=== PATIENT | female | born 1990 | race Caucasian/White ===

== ENCOUNTER 2018-01-11 11:32 | Inpatient (IN) | payer SELFPAY ==
[2018-01-11] MEDS ORDERED: Ondansetron 4 MG/2 ML SDV IVPUSH PRN (12:17)
[2018-01-11] MEDS ORDERED: Sodium Chloride 0.9% 10 ML Syringe FLUSH PRN (12:17)
[2018-01-11] MEDS ORDERED: Nalbuphine 20 MG/ML 1 ML Syringe IVPUSH PRN (12:17)
[2018-01-11] MEDS ORDERED: Misoprostol 25 MCG (1/4 of 100 MCG) Tab ONE (12:23)
[2018-01-11] MEDS ORDERED: Oxytocin/Lactated Ringers 10 UNIT/1,000 ML BAG IV SCH ×2 (12:30)
[2018-01-11] MEDS: Misoprostol 25 MCG (1/4 of 100 MCG) Tab VAG PRN ×3 (12:40→21:30)
[2018-01-11] MEDS ORDERED: Penicillin G Potassium 5 MILLUNITS in Sodium Chloride 0.9% 100 ML IV ONE (12:45)
[2018-01-11] MEDS ORDERED: Acetaminophen 325 MG Tab PO ONE (14:01)
--- NOTE | 2018-01-11 17:16 | PCM.LDHP ---
L&D History of Present Illness - General Date of Service: 01/11/18 Admit Problem/Dx: Patient Status Order with Admit Dx/Problem 01/11/18 12:17 Patient Status [ADT] Routine Admission Diagnosis/Problem Admission Diagnosis/Problem Elevated blood pressure affecting in third trimester, antepartum Source of Information: Patient History Limitations: Reports: No Limitations - History of Present Illness Introduction:: Patient is a 27 y/o at 36 6/7 wks presented to clinic today for routine appointment and noted feeling unwell and was found to have a BP of 154/88 and a repeat of 148/90. Was sent here for further monitoring. No other concerns/ complaints. 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 Para: 0 LMP (Approximate): Psychiatric History: Reports: Anxiety, Depression, Eating Disorders - Infectious Disease History Infectious Disease History: Reports: MRSA - Past Surgical History HEENT Surgical History: Reports: Oral Surgery Musculoskeletal Surgical History: Reports: Other (See Below) Other Musculoskeletal Surgeries/Procedures:: bunionectomy Social & Family History - Family History Family Medical History: Noncontributory - Tobacco Use Smoking Status *Q: Former Smoker Packs/Tins Daily: 0.5 Used Tobacco, but Quit: Yes Month/Year Tobacco Last Used: 05/2017 - Caffeine Use Caffeine Use: Reports: None - Alcohol Use Alcohol Use History: No - Recreational Drug Use Recreational Drug Use: Yes Drug Use in Last 12 Months: No Recreational Drug Type: Reports: Amphetamines (Speed), Barbituates, Cocaine, Heroin H&P Review of Systems - Review of Systems: Review Of Systems: See Below General: Reports: Malaise HEENT: Reports: Headaches (intermittent over the last few days ) Pulmonary: Reports: No Symptoms Cardiovascular: Reports: No Symptoms Gastrointestinal: Reports: No Symptoms Genitourinary: Reports: No Symptoms Musculoskeletal: Reports: No Symptoms Psychiatric: Reports: No Symptoms Neurological: Reports: No Symptoms L&D Exam - Exam Exam: See Below - Vital Signs Vital Signs: Last Vital Signs Temp 37.2 C 01/11/18 12:17 Pulse 78 01/11/18 12:17 Resp 18 01/11/18 12:17 BP 152/94 H 01/11/18 12:17 Pulse Ox 98 01/11/18 12:17 Weight: 86.183 kg - OB Specific Contraction Intensity: Irritability Movement: Active Heart Tones: Present Heart Tones per Min: 130 Heart Rate (FHR) Variability: Moderate (6-25 bmp) Presentation: Vertex - Sapp Score Sapp Score Cervix Position: Posterior Sapp Score Consistency: Medium Sapp Score Effacement: 31-50% Sapp Score Dilation: 1-2 cm Sapp Score 's Station: -2 Sapp Score Total: 4 - Exam General: Alert, Oriented, Cooperative Lungs: Clear to Auscultation, Normal Respiratory Effort Cardiovascular: Regular Rate, Regular Rhythm GI/Abdominal Exam: Soft, Non-Tender Genitourinary: Normal external exam Extremities: Normal Inspection Skin: Warm, Dry, Intact - Patient Data Lab Results Last 24 hrs: Laboratory Results - last 24 hr 01/11/18 01/11/18 01/11/18 Range/Units 11:51 12:00 12:15 WBC (3.98-10.04) K/mm3 RBC (3.98-5.22) M/mm3 Hgb (11.2-15.7) gm/L Hct (34.1-44.9) % MCV (79.4-94.8) fl MCH (25.6-32.2) pg MCHC (32.2-35.5) g/dl RDW Std Deviation (36.4-46.3) fL Plt Count (182-369) K/mm3 MPV (9.4-12.3) fl Neut % (Auto) (34.0-71.1) % Lymph % (Auto) (19.3-51.7) % [place] % (Auto) (4.7-12.5) % Eos % (Auto) (0.7-5.8) Baso % (Auto) (0.1-1.2) % Neut # (Auto) (1.56-6.13) K/mm3 Lymph # (Auto) (1.18-3.74) K/mm3 [place] # (Auto) (0.24-0.36) K/mm3 Eos # (Auto) (0.04-0.36) K/mm3 Baso # (Auto) (0.01-0.08) K/mm3 BUN (7-18) mg/dL Creatinine (0.55-1.02) mg/dL Est Cr Clr Drug Dosing mL/min Estimated GFR (MDRD) (>60) mL/min Uric Acid (2.6-6.0) mg/dL AST (15-37) U/L ALT (14-59) U/L Lactate Dehydrogenase (81-234) U/L Urine Color Yellow (Yellow) Urine Appearance Clear (Clear) Urine pH 7.5 (5.0-8.0) Ur Specific [place] 1.015 (1.005-1.030) Urine Protein Negative (Negative) Urine Glucose (UA) Negative (Negative) Urine Ketones Negative (Negative) Urine Occult Blood Negative (Negative) Urine Nitrite Negative (Negative) Urine Bilirubin Negative (Negative) Urine Urobilinogen 0.2 (0.2-1.0) Ur Leukocyte Esterase Negative (Negative) Urine RBC Not seen (0-5) /hpf Urine WBC 0-5 (0-5) /hpf Ur Epithelial Cells 5-10 H (0-5) /hpf Urine Bacteria Few (FEW) /hpf Urine Mucus Not seen (FEW) /hpf Urine Opiates Screen Negative (NEGATIVE) Ur Buprenorphine Scrn Negative (NEGATIVE) Ur Oxycodone Screen Negative (NEGATIVE) Urine Methadone Screen Negative (NEGATIVE) Ur Propoxyphene Screen Negative (NEGATIVE) Ur Barbiturates Screen Negative (NEGATIVE) Ur Tricyclics Screen Negative (NEGATIVE) Ur Phencyclidine Scrn Negative (NEGATIVE) Ur Amphetamine Screen Negative (NEGATIVE) U Methamphetamines Scrn Negative (NEGATIVE) U Benzodiazepines Scrn Negative (NEGATIVE) U Cocaine Metab Screen Negative (NEGATIVE) U Marijuana (THC) Screen Negative (NEGATIVE) RPR (NONREACTIVE) MRSA (PCR) Positive H Blood Type Gel Antibody Screen 01/11/18 01/11/18 01/11/18 Range/Units 12:20 12:20 12:20 WBC 9.45 (3.98-10.04) K/mm3 RBC 4.40 (3.98-5.22) M/mm3 Hgb 13.8 (11.2-15.7) gm/L Hct 40.3 (34.1-44.9) % MCV 91.6 (79.4-94.8) fl MCH 31.4 (25.6-32.2) pg MCHC 34.2 (32.2-35.5) g/dl RDW Std Deviation 43.8 (36.4-46.3) fL Plt Count 148 L (182-369) K/mm3 MPV 12.9 H (9.4-12.3) fl Neut % (Auto) 77.0 H (34.0-71.1) % Lymph % (Auto) 16.0 L (19.3-51.7) % [place] % (Auto) 6.3 (4.7-12.5) % Eos % (Auto) 0.4 L (0.7-5.8) Baso % (Auto) 0.1 (0.1-1.2) % Neut # (Auto) 7.27 H (1.56-6.13) K/mm3 Lymph # (Auto) 1.51 (1.18-3.74) K/mm3 [place] # (Auto) 0.60 H (0.24-0.36) K/mm3 Eos # (Auto) 0.04 (0.04-0.36) K/mm3 Baso # (Auto) 0.01 (0.01-0.08) K/mm3 BUN 6 L (7-18) mg/dL Creatinine 0.9 (0.55-1.02) mg/dL Est Cr Clr Drug Dosing 98.99 mL/min Estimated GFR (MDRD) > 60 (>60) mL/min Uric Acid 6.1 H (2.6-6.0) mg/dL AST 19 (15-37) U/L ALT 18 (14-59) U/L Lactate Dehydrogenase 185 (81-234) U/L Urine Color (Yellow) Urine Appearance (Clear) Urine pH (5.0-8.0) Ur Specific [place] (1.005-1.030) Urine Protein (Negative) Urine Glucose (UA) (Negative) Urine Ketones (Negative) Urine Occult Blood (Negative) Urine Nitrite (Negative) Urine Bilirubin (Negative) Urine Urobilinogen (0.2-1.0) Ur Leukocyte Esterase (Negative) Urine RBC (0-5) /hpf Urine WBC (0-5) /hpf Ur Epithelial Cells (0-5) /hpf Urine Bacteria (FEW) /hpf Urine Mucus (FEW) /hpf Urine Opiates Screen (NEGATIVE) Ur Buprenorphine Scrn (NEGATIVE) Ur Oxycodone Screen (NEGATIVE) Urine Methadone Screen (NEGATIVE) Ur Propoxyphene Screen (NEGATIVE) Ur Barbiturates Screen (NEGATIVE) Ur Tricyclics Screen (NEGATIVE) Ur Phencyclidine Scrn (NEGATIVE) Ur Amphetamine Screen (NEGATIVE) U Methamphetamines Scrn (NEGATIVE) U Benzodiazepines Scrn (NEGATIVE) U Cocaine Metab Screen (NEGATIVE) U Marijuana (THC) Screen (NEGATIVE) RPR (NONREACTIVE) MRSA (PCR) Blood Type O POSITIVE Gel Antibody Screen Negative 01/11/18 Range/Units 12:20 WBC (3.98-10.04) K/mm3 RBC (3.98-5.22) M/mm3 Hgb (11.2-15.7) gm/L Hct (34.1-44.9) % MCV (79.4-94.8) fl MCH (25.6-32.2) pg MCHC (32.2-35.5) g/dl RDW Std Deviation (36.4-46.3) fL Plt Count (182-369) K/mm3 MPV (9.4-12.3) fl Neut % (Auto) (34.0-71.1) % Lymph % (Auto) (19.3-51.7) % [place] % (Auto) (4.7-12.5) % Eos % (Auto) (0.7-5.8) Baso % (Auto) (0.1-1.2) % Neut # (Auto) (1.56-6.13) K/mm3 Lymph # (Auto) (1.18-3.74) K/mm3 [place] # (Auto) (0.24-0.36) K/mm3 Eos # (Auto) (0.04-0.36) K/mm3 Baso # (Auto) (0.01-0.08) K/mm3 BUN (7-18) mg/dL Creatinine (0.55-1.02) mg/dL Est Cr Clr Drug Dosing mL/min Estimated GFR (MDRD) (>60) mL/min Uric Acid (2.6-6.0) mg/dL AST (15-37) U/L ALT (14-59) U/L Lactate Dehydrogenase (81-234) U/L Urine Color (Yellow) Urine Appearance (Clear) Urine pH (5.0-8.0) Ur Specific [place] (1.005-1.030) Urine Protein (Negative) Urine Glucose (UA) (Negative) Urine Ketones (Negative) Urine Occult Blood (Negative) Urine Nitrite (Negative) Urine Bilirubin (Negative) Urine Urobilinogen (0.2-1.0) Ur Leukocyte Esterase (Negative) Urine RBC (0-5) /hpf Urine WBC (0-5) /hpf Ur Epithelial Cells (0-5) /hpf Urine Bacteria (FEW) /hpf Urine Mucus (FEW) /hpf Urine Opiates Screen (NEGATIVE) Ur Buprenorphine Scrn (NEGATIVE) Ur Oxycodone Screen (NEGATIVE) Urine Methadone Screen (NEGATIVE) Ur Propoxyphene Screen (NEGATIVE) Ur Barbiturates Screen (NEGATIVE) Ur Tricyclics Screen (NEGATIVE) Ur Phencyclidine Scrn (NEGATIVE) Ur Amphetamine Screen (NEGATIVE) U Methamphetamines Scrn (NEGATIVE) U Benzodiazepines Scrn (NEGATIVE) U Cocaine Metab Screen (NEGATIVE) U Marijuana (THC) Screen (NEGATIVE) RPR Non-reactive (NONREACTIVE) MRSA (PCR) Blood Type Gel Antibody Screen Result Diagrams: 01/11/18 12:20 01/11/18 12:20 - Problem List (1) 37 weeks gestation of SNOMED Code(s): 92908482 ICD Code: Z3A.37 - 37 WEEKS GESTATION OF Status: Acute Current Visit: Yes (2) Preeclampsia SNOMED Code(s): 225506218 ICD Code: O14.90 - UNSPECIFIED PRE-ECLAMPSIA, UNSPECIFIED TRIMESTER Status : Acute Current Visit: Yes Qualifiers: Trimester: third trimester Qualified Code(s): O14.93 - Unspecified pre- eclampsia, third trimester (3) GBS (group B Streptococcus carrier), +RV culture, currently SNOMED Code(s): 5308869047534, 794983857, 1137127850079 ICD Code: O99.820 - STREPTOCOCCUS B CARRIER STATE COMPLICATING Status: Acute Current Visit: Yes (4) History of substance abuse SNOMED Code(s): 137161937 ICD Code: Z87.898 - PERSONAL HISTORY OF OTHER SPECIFIED CONDITIONS Status: Acute Current Visit: Yes Problem List Initiated/Reviewed/Updated: Yes Orders Last 24hrs: Active Orders 24 hr Category Date Time Status Patient Status [ADT] Routine ADT 01/11/18 12:17 Active Communication Order [RC] ASDIRECTED Care 01/11/18 12:17 Active Communication Order [RC] ASDIRECTED Care 01/11/18 12:17 Active Communication Order [RC] ASDIRECTED Care 01/11/18 12:17 Active Communication Order [RC] ASDIRECTED Care 01/11/18 12:17 Active Monitoring [RC] INTERMITTENT Care 01/11/18 12:17 Active Non Stress Test [RC] PER UNIT ROUTINE Care 01/11/18 12:17 Active Notify Provider [RC] ASDIRECTED Care 01/11/18 12:17 Active Notify Provider [RC] PRN Care 01/11/18 12:17 Active Peripheral IV Care [RC] . DIRECTED Care 01/11/18 12:18 Active Vaginal Exam [RC] ASDIRECTED Care 01/11/18 12:17 Active Vital Signs [RC] PER UNIT ROUTINE Care 01/11/18 12:17 Active Regular Diet [DIET] Diet 01/11/18 Dinner Active Regular Diet [DIET] Diet 01/11/18 Lunch Active DRUG SCREEN, URINE [URCHEM] Stat Lab 01/11/18 12:00 Ordered MRSA CULTURE [MREF] Routine Lab 01/11/18 12:15 Received PATIENT RETYPE [BBK] Routine Lab 01/11/18 12:20 Results TYPE AND SCREEN [BBK] Routine Lab 01/11/18 12:20 Results Lactated Ringers [Ringers, Lactated] 1,000 ml Med 01/11/18 12:30 Active IV ASDIRECTED Nalbuphine [Nubain] Med 01/11/18 12:17 Active 10 mg IVPUSH Q2H PRN Ondansetron [Zofran] Med 01/11/18 12:17 Active 4 mg IVPUSH Q4H PRN Oxytocin/Lactated Ringers [Pitocin in LR 10 Units/1,000 Med 01/11/18 12:30 Active ML] 10 unit in 1,000 ml IV .CONTINUOUS Oxytocin/Lactated Ringers [Pitocin in LR 10 Units/1,000 Med 01/11/18 12:30 Active ML] 10 unit in 1,000 ml IV TITRATE Penicillin G Potassium [Pfizerpen] 2.5 millunits Med 01/11/18 17:00 Active Sodium Chloride 0.9% [Normal Saline] 100 ml IV Q4H Sodium Chloride 0.9% [Saline Flush] Med 01/11/18 12:17 Active 10 ml FLUSH ASDIRECTED PRN miSOPROStol [Cytotec] Med 01/11/18 12:17 Active 25 mcg VAG Q4H PRN Electronic Heart Tones Internal [WOMSER] Per Unit Ot 01/11/18 12:17 Ordered Routine Medication Administration Instruction [OM.PC] Ot 01/11/18 12:30 Ordered ASDIRECTED PIH Panel [OM.PC] Stat Ot 01/11/18 11:51 Ordered Peripheral IV Insertion Adult [OM.PC] Routine Ot 01/11/18 12:17 Ordered Medication Orders Lactated Ringer's (Ringers, Lactated) 1,000 mls @ 40 mls/hr IV ASDIRECTED BRISA Oxytocin/Lactated Ringer's (Pitocin In Lr 10 Units/1,000 Ml) 10 unit in 1,000 mls @ 12 mls/hr IV TITRATE BRISA; Protocol Penicillin G Potassium 2.5 (millunits/ Sodium Chloride) 100 mls @ 100 mls/hr IV Q4H BIRSA Oxytocin/Lactated Ringer's (Pitocin In Lr 10 Units/1,000 Ml) 10 unit in 1,000 mls @ 500 mls/hr IV .CONTINUOUS BRISA Misoprostol (Cytotec) 25 mcg VAG Q4H PRN PRN Reason: cervical ripening Last Admin: 01/11/18 12:40 Dose: 25 mcg Nalbuphine HCl (Nubain) 10 mg IVPUSH Q2H PRN PRN Reason: pain Ondansetron HCl (Zofran) 4 mg IVPUSH Q4H PRN PRN Reason: Nausea/Vomiting Sodium Chloride (Saline Flush) 10 ml FLUSH ASDIRECTED PRN PRN Reason: Keep Vein Open Assessment/Plan Comment:: 27 y/o at 36 6/7 wks who has continued findings of mild range BP's and one isolated severe range. Will keep for IOL. * Labs done and WNL * Will defer magnesium for now as only one isolated severe range BP. Will monitor closely * Cyotec and rodriguez bulb for IOL. * GBS prophylaxis to be started later in induction process * pain management per patient preference * UDS on admission * Anticipate
--- NOTE | 2018-01-11 22:16 | PCM.PNLD ---
Labor Progress Note - VS & Meds Vital Signs: Last Vital Signs Temp 37.2 C 01/11/18 12:17 Pulse 78 01/11/18 12:17 Resp 18 01/11/18 12:17 BP 152/94 H 01/11/18 12:17 Pulse Ox 98 01/11/18 12:17 Active Medications: Current Medications Lactated Ringer's (Ringers, Lactated) 1,000 mls @ 40 mls/hr IV ASDIRECTED BRISA Oxytocin/Lactated Ringer's (Pitocin In Lr 10 Units/1,000 Ml) 10 unit in 1,000 mls @ 12 mls/hr IV TITRATE BRISA; Protocol Penicillin G Potassium 2.5 (millunits/ Sodium Chloride) 100 mls @ 100 mls/hr IV Q4H BRISA Oxytocin/Lactated Ringer's (Pitocin In Lr 10 Units/1,000 Ml) 10 unit in 1,000 mls @ 500 mls/hr IV .CONTINUOUS BRISA Nalbuphine HCl (Nubain) 10 mg IVPUSH Q2H PRN PRN Reason: pain Ondansetron HCl (Zofran) 4 mg IVPUSH Q4H PRN PRN Reason: Nausea/Vomiting Sodium Chloride (Saline Flush) 10 ml FLUSH ASDIRECTED PRN PRN Reason: Keep Vein Open Discontinued Medications Acetaminophen (Tylenol) 650 mg PO NOW ONE Stop: 01/11/18 14:02 Last Admin: 01/11/18 14:17 Dose: 650 mg Penicillin G Potassium 5 (millunits/ Sodium Chloride) 100 mls @ 100 mls/hr IV ONETIME ONE Stop: 01/11/18 13:44 Misoprostol (Cytotec) 25 mcg VAG Q4H PRN PRN Reason: cervical ripening Last Admin: 01/11/18 21:30 Dose: 25 mcg Misoprostol (Cytotec) Confirm Administered Dose 25 mcg .ROUTE .STK-MED ONE Stop: 01/11/18 12:24 Last Admin: 01/11/18 12:34 Dose: Not Given - Uterine Contractions Uterine Monitoring Mode: External [place] Contraction Intensity: Irritability - Monitoring Monitor Mode: External Ultrasound Heart Rate (FHR) Baseline: 125 Heart Rate (FHR) Variability: Moderate (6-25 bmp) Accelerations: Present, 15x15 Decelerations: None Strip Review: Category I - Labor Progress (Free Text) Labor Progress: 3rd cytotec placed around rodriguez. Almost out of cervix. Will plan on switching to pitocin in 4 hours
[2018-01-12] MEDS: Lactated Ringers 1,000 ML IV SCH ×2 (01:43→08:17)
[2018-01-12] MEDS: Penicillin G Potassium 2.5 MILLUNITS in Sodium Chloride 0.9% 100 ML IV SCH ×2 (02:26→06:43)
--- NOTE | 2018-01-12 06:56 | PCM.PNLD ---
Labor Progress Note - VS & Meds Vital Signs: Last Vital Signs Temp 37.2 C 01/11/18 12:17 Pulse 78 01/11/18 12:17 Resp 18 01/11/18 12:17 BP 152/94 H 01/11/18 12:17 Pulse Ox 98 01/11/18 12:17 Active Medications: Current Medications Lactated Ringer's (Ringers, Lactated) 1,000 mls @ 40 mls/hr IV ASDIRECTED BRISA Last Admin: 01/12/18 01:43 Dose: 40 mls/hr Oxytocin/Lactated Ringer's (Pitocin In Lr 10 Units/1,000 Ml) 10 unit in 1,000 mls @ 12 mls/hr IV TITRATE BRISA; Protocol Last Titration: 01/12/18 06:51 Dose: 10 munits/min, 60 mls/hr Penicillin G Potassium 2.5 (millunits/ Sodium Chloride) 100 mls @ 100 mls/hr IV Q4H BRISA Last Admin: 01/12/18 06:43 Dose: 100 mls/hr Oxytocin/Lactated Ringer's (Pitocin In Lr 10 Units/1,000 Ml) 10 unit in 1,000 mls @ 500 mls/hr IV .CONTINUOUS BRISA Nalbuphine HCl (Nubain) 10 mg IVPUSH Q2H PRN PRN Reason: pain Ondansetron HCl (Zofran) 4 mg IVPUSH Q4H PRN PRN Reason: Nausea/Vomiting Sodium Chloride (Saline Flush) 10 ml FLUSH ASDIRECTED PRN PRN Reason: Keep Vein Open Discontinued Medications Acetaminophen (Tylenol) 650 mg PO NOW ONE Stop: 01/11/18 14:02 Last Admin: 01/11/18 14:17 Dose: 650 mg Penicillin G Potassium 5 (millunits/ Sodium Chloride) 100 mls @ 100 mls/hr IV ONETIME ONE Stop: 01/11/18 13:44 Last Admin: 01/12/18 01:45 Dose: 100 mls/hr Misoprostol (Cytotec) 25 mcg VAG Q4H PRN PRN Reason: cervical ripening Last Admin: 01/11/18 21:30 Dose: 25 mcg Misoprostol (Cytotec) Confirm Administered Dose 25 mcg .ROUTE .STK-MED ONE Stop: 01/11/18 12:24 Last Admin: 01/11/18 12:34 Dose: Not Given - Uterine Contractions Uterine Monitoring Mode: External [place] Contraction Intensity: Mild to Moderate - Monitoring Monitor Mode: External Ultrasound Heart Rate (FHR) Baseline: 130 Heart Rate (FHR) Variability: Moderate (6-25 bmp) Accelerations: Present, 15x15 Decelerations: None Strip Review: Category I - Vaginal Exam Dilation (cm): 3 Effacement (Percent): 80 Station: -2 Cervical Position: Posterior - Labor Progress (Free Text) Labor Progress: Doing well. On 10 of pitocin. Reports contractions as mild. AROM performed with release of clear fluid. BP's normal to mild range overnight.
--- NOTE | 2018-01-12 07:10 | PCM.PREANE ---
Preanesthetic Assessment - Procedure Proposed Procedure: [facility] - Anesthesia/Transfusion/Family Hx Anesthesia History: Prior Anesthesia Without Reaction Family History of Anesthesia Reaction: No Transfusion History: No Prior Transfusion(s) - Review of Systems General: No Symptoms Pulmonary: No Symptoms Cardiovascular: No Symptoms Gastrointestinal: No Symptoms Neurological: No Symptoms Other: Reports: Depression, Anxiety - Physical Assessment NPO Status Date: 01/12/18 NPO Status Time: 04:00 Pulse: 55 O2 Sat by Pulse Oximetry: 98 Respiratory Rate: 18 Blood Pressure: 136/83 Temperature: 36.8 C Vital Signs: Last Vital Signs Temp 37.2 C 01/11/18 12:17 Pulse 78 01/11/18 12:17 Resp 18 01/11/18 12:17 BP 152/94 H 01/11/18 12:17 Pulse Ox 98 01/11/18 12:17 Height: 1.75 m Weight: 86.183 kg ASA Class: 2 Mental Status: Alert & Oriented x3 Airway Class: Mallampati = 1 Dentition: Reports: Normal Dentition Thyro-Mental Finger Breadths: 3 Mouth Opening Finger Breadths: 3 ROM/Head Extension: Full Lungs: Clear to Auscultation, Normal Respiratory Effort Cardiovascular: Regular Rate, Regular Rhythm - Lab Values: Laboratory Last Values WBC 9.45 K/mm3 (3.98-10.04) 01/11/18 12:20 RBC 4.40 M/mm3 (3.98-5.22) 01/11/18 12:20 Hgb 13.8 gm/L (11.2-15.7) 01/11/18 12:20 Hct 40.3 % (34.1-44.9) 01/11/18 12:20 MCV 91.6 fl (79.4-94.8) 01/11/18 12:20 MCH 31.4 pg (25.6-32.2) 01/11/18 12:20 MCHC 34.2 g/dl (32.2-35.5) 01/11/18 12:20 RDW Std Deviation 43.8 fL (36.4-46.3) 01/11/18 12:20 Plt Count 148 K/mm3 (182-369) L 01/11/18 12:20 MPV 12.9 fl (9.4-12.3) H 01/11/18 12:20 Neut % (Auto) 77.0 % (34.0-71.1) H 01/11/18 12:20 Lymph % (Auto) 16.0 % (19.3-51.7) L 01/11/18 12:20 [place] % (Auto) 6.3 % (4.7-12.5) 01/11/18 12:20 Eos % (Auto) 0.4 (0.7-5.8) L 01/11/18 12:20 Baso % (Auto) 0.1 % (0.1-1.2) 01/11/18 12:20 Neut # (Auto) 7.27 K/mm3 (1.56-6.13) H 01/11/18 12:20 Lymph # (Auto) 1.51 K/mm3 (1.18-3.74) 01/11/18 12:20 [place] # (Auto) 0.60 K/mm3 (0.24-0.36) H 01/11/18 12:20 Eos # (Auto) 0.04 K/mm3 (0.04-0.36) 01/11/18 12:20 Baso # (Auto) 0.01 K/mm3 (0.01-0.08) 01/11/18 12:20 BUN 6 mg/dL (7-18) L 01/11/18 12:20 Creatinine 0.9 mg/dL (0.55-1.02) 01/11/18 12:20 Est Cr Clr Drug Dosing 98.99 mL/min 01/11/18 12:20 Estimated GFR (MDRD) > 60 mL/min (>60) 01/11/18 12:20 Uric Acid 6.1 mg/dL (2.6-6.0) H 01/11/18 12:20 AST 19 U/L (15-37) 01/11/18 12:20 ALT 18 U/L (14-59) 01/11/18 12:20 Lactate Dehydrogenase 185 U/L (81-234) 01/11/18 12:20 Urine Color Yellow (Yellow) 01/11/18 11:51 Urine Appearance Clear (Clear) 01/11/18 11:51 Urine pH 7.5 (5.0-8.0) 01/11/18 11:51 Ur Specific [place] 1.015 (1.005-1.030) 01/11/18 11:51 Urine Protein Negative (Negative) 01/11/18 11:51 Urine Glucose (UA) Negative (Negative) 01/11/18 11:51 Urine Ketones Negative (Negative) 01/11/18 11:51 Urine Occult Blood Negative (Negative) 01/11/18 11:51 Urine Nitrite Negative (Negative) 01/11/18 11:51 Urine Bilirubin Negative (Negative) 01/11/18 11:51 Urine Urobilinogen 0.2 (0.2-1.0) 01/11/18 11:51 Ur Leukocyte Esterase Negative (Negative) 01/11/18 11:51 Urine RBC Not seen /hpf (0-5) 01/11/18 11:51 Urine WBC 0-5 /hpf (0-5) 01/11/18 11:51 Ur Epithelial Cells 5-10 /hpf (0-5) H 01/11/18 11:51 Urine Bacteria Few /hpf (FEW) 01/11/18 11:51 Urine Mucus Not seen /hpf (FEW) 01/11/18 11:51 Urine Opiates Screen Negative (NEGATIVE) 01/11/18 12:00 Ur Buprenorphine Scrn Negative (NEGATIVE) 01/11/18 12:00 Ur Oxycodone Screen Negative (NEGATIVE) 01/11/18 12:00 Urine Methadone Screen Negative (NEGATIVE) 01/11/18 12:00 Ur Propoxyphene Screen Negative (NEGATIVE) 01/11/18 12:00 Ur Barbiturates Screen Negative (NEGATIVE) 01/11/18 12:00 Ur Tricyclics Screen Negative (NEGATIVE) 01/11/18 12:00 Ur Phencyclidine Scrn Negative (NEGATIVE) 01/11/18 12:00 Ur Amphetamine Screen Negative (NEGATIVE) 01/11/18 12:00 U Methamphetamines Scrn Negative (NEGATIVE) 01/11/18 12:00 U Benzodiazepines Scrn Negative (NEGATIVE) 01/11/18 12:00 U Cocaine Metab Screen Negative (NEGATIVE) 01/11/18 12:00 U Marijuana (THC) Screen Negative (NEGATIVE) 01/11/18 12:00 RPR Non-reactive (NONREACTIVE) 01/11/18 12:20 MRSA (PCR) Positive H 01/11/18 12:15 Blood Type O POSITIVE 01/11/18 12:20 Gel Antibody Screen Negative 01/11/18 12:20 - Allergies Allergies/Adverse Reactions: Allergies Allergy/AdvReac Type Severity Reaction Status Date / Time No Known Allergies Allergy Verified 01/11/18 11:51 - Blood Blood Available: No Product(s) Available: None - Anesthesia Plan Pre-Op Medication Ordered: None - Acknowledgements Anesthesia Type Planned: Epidural Pt an Appropriate Candidate for the Planned Anesthesia: Yes Alternatives and Risks of Anesthesia Discussed w Pt/Guardian: Yes Pt/Guardian Understands and Agrees with Anesthesia Plan: Yes PreAnesthesia Questionnaire - Past Health History Medical/Surgical History: Denies Medical/Surgical History Genitourinary History: Reports: STD Other Genitourinary History: history chlamydia 2014 [employer] History: Reports: Other OB/BYN History: Cycles somewhat irregular with history of eating disorde. Sexually active and history of PID and chlamydia infection. Currently sexually active and on no method of control Psychiatric History: Reports: Anxiety, Depression, Eating Disorders - Infectious Disease History Infectious Disease History: Reports: MRSA - Past Surgical History HEENT Surgical History: Reports: Oral Surgery Musculoskeletal Surgical History: Reports: Other (See Below) Other Musculoskeletal Surgeries/Procedures:: bunionectomy - SUBSTANCE USE Smoking Status *Q: Former Smoker Tobacco Use Within Last Twelve Months: Cigarettes Recreational Drug Use History: Yes Recreational Drug Type: Reports: Amphetamines (Speed), Barbituates, Cocaine, Heroin Recreational Drug Last Use: Hasnt used drugs in over a year per patient - HOME MEDS Home Medications: Home Meds Hydrocodone/Acetaminophen [Lortab 5-325 mg Tablet] 1 - 2 each PO Q6HR PRN #20 tablet 02/19/16 [Rx] Sulfamethoxazole/Trimethoprim [Bactrim Ds Tablet] 1 each PO Q12HR #20 tablet 11/27 [Rx] - CURRENT (IN HOUSE) MEDS Current Meds: Current Medications Lactated Ringer's (Ringers, Lactated) 1,000 mls @ 40 mls/hr IV ASDIRECTED BRISA Last Admin: 01/12/18 01:43 Dose: 40 mls/hr Oxytocin/Lactated Ringer's (Pitocin In Lr 10 Units/1,000 Ml) 10 unit in 1,000 mls @ 12 mls/hr IV TITRATE BRISA; Protocol Last Titration: 01/12/18 06:51 Dose: 10 munits/min, 60 mls/hr Penicillin G Potassium 2.5 (millunits/ Sodium Chloride) 100 mls @ 100 mls/hr IV Q4H BRISA Last Admin: 01/12/18 06:43 Dose: 100 mls/hr Oxytocin/Lactated Ringer's (Pitocin In Lr 10 Units/1,000 Ml) 10 unit in 1,000 mls @ 500 mls/hr IV .CONTINUOUS BRISA Nalbuphine HCl (Nubain) 10 mg IVPUSH Q2H PRN PRN Reason: pain Ondansetron HCl (Zofran) 4 mg IVPUSH Q4H PRN PRN Reason: Nausea/Vomiting Sodium Chloride (Saline Flush) 10 ml FLUSH ASDIRECTED PRN PRN Reason: Keep Vein Open Discontinued Medications Acetaminophen (Tylenol) 650 mg PO NOW ONE Stop: 01/11/18 14:02 Last Admin: 01/11/18 14:17 Dose: 650 mg Penicillin G Potassium 5 (millunits/ Sodium Chloride) 100 mls @ 100 mls/hr IV ONETIME ONE Stop: 01/11/18 13:44 Last Admin: 01/12/18 01:45 Dose: 100 mls/hr Misoprostol (Cytotec) 25 mcg VAG Q4H PRN PRN Reason: cervical ripening Last Admin: 01/11/18 21:30 Dose: 25 mcg Misoprostol (Cytotec) Confirm Administered Dose 25 mcg .ROUTE .STK-MED ONE Stop: 01/11/18 12:24 Last Admin: 01/11/18 12:34 Dose: Not Given
[2018-01-12] MEDS ORDERED: fentaNYL 100 MCG/2 ML SDV EPIDUR PRN (07:11)
[2018-01-12] MEDS ORDERED: diphenhydrAMINE 50 MG/ML SDV IVPUSH PRN (07:11)
[2018-01-12] MEDS ORDERED: ePHEDrine 50 MG/ML SDV IVPUSH PRN (07:11)
[2018-01-12] MEDS ORDERED: Ondansetron 4 MG/2 ML SDV IVPUSH PRN (07:11)
[2018-01-12] MEDS ORDERED: Bupivacaine/fentaNYL/NS 100 ML Bag EPIDUR SCH (07:15)
[2018-01-12] MEDS ORDERED: Labetalol 100 MG/20 ML MDV IVPUSH ONE (08:02)
[2018-01-12] MEDS ORDERED: Calcium Gluconate 10% 1 GM/10 ML SDV IV PRN (08:03)
[2018-01-12] MEDS ORDERED: Magnesium Sulfate/Water 2 GM in Premix Bag 1 BAG IV ONE (08:03)
[2018-01-12] MEDS ORDERED: Magnesium Sulfate/Water 40 GM/1,000 ML BAG IV SCH (08:15)
[2018-01-12] MEDS ORDERED: Misoprostol 200 MCG Tab ONE (09:50)
[2018-01-12] MEDS ORDERED: Bupivacaine 0.25% 10 ML SDV ONE (10:00)
[2018-01-12] MEDS ORDERED: Misoprostol 200 MCG Tab PO STA (10:09)
--- NOTE | 2018-01-12 10:09 | PCM.DEL ---
L & D Note - General Info Date of Service: 01/12/18 - Delivery Note Labor: Induced by ARM, Induced by Oxytocin Cervical Ripening Method: Balloon Device, Misoprostil Delivery Outcome: Livebirth Delivery Method: Spontaneous Vaginal Delivery-Single Infant Delivery Mode: Spontaneous Presentation: Right Occiput Anterior (MARISA) Nuchal Cord: None Anesthesia Type: Epidural Amniotic Fluid Description: Clear Episiotomy Type: None Laceration: 2nd Degree, Labial Suture type: Vicryl Suture size: 2-0 Placenta: Intact, Spontaneous Cord: 3 Vessels Estimated Blood Loss: 400 Resuscitation Needed: Yes : Bulb Syringe, Stimulated, Warmed, New [place] Used, Warmer Used Score 1 min: 8 Score 5 min: 8 Delivery Comments (Free Text/Narrative):: Patient found to be complete and began pushing. With maternal pushing effort head delivered from an MARISA presentation. No nuchal cord present. With gentle downward traction the shoulders and body delivered. Infant placed on maternal abdomen. Cord clamped and cut. Cord blood obtained. Placenta allowed time to separate and expelled intact. There was a slow, continued bleeding after this. Due to this finding magnesium temporarily discontinued and 600 mcg of buccal cytotec given. Good resolution of bleeding with these interventions. Inspection of the perineum showed a right labia/perineal laceration. This was repaired with a 2-0 vicryl in the typical fashion. - General Info Date of Service: 01/12/18 - Patient Data Vitals - Most Recent: Last Vital Signs Temp 36.8 C 01/12/18 07:10 Pulse 53 L 01/12/18 08:14 Resp 18 01/12/18 07:10 BP 175/95 H 01/12/18 08:14 Pulse Ox 98 01/12/18 07:10 Weight - Most Recent: 86.183 kg Lab Results Last 24 Hours: Laboratory Results - last 24 hr 01/11/18 01/11/18 01/11/18 Range/Units 11:51 12:00 12:15 WBC (3.98-10.04) K/mm3 RBC (3.98-5.22) M/mm3 Hgb (11.2-15.7) gm/L Hct (34.1-44.9) % MCV (79.4-94.8) fl MCH (25.6-32.2) pg MCHC (32.2-35.5) g/dl RDW Std Deviation (36.4-46.3) fL Plt Count (182-369) K/mm3 MPV (9.4-12.3) fl Neut % (Auto) (34.0-71.1) % Lymph % (Auto) (19.3-51.7) % [place] % (Auto) (4.7-12.5) % Eos % (Auto) (0.7-5.8) Baso % (Auto) (0.1-1.2) % Neut # (Auto) (1.56-6.13) K/mm3 Lymph # (Auto) (1.18-3.74) K/mm3 [place] # (Auto) (0.24-0.36) K/mm3 Eos # (Auto) (0.04-0.36) K/mm3 Baso # (Auto) (0.01-0.08) K/mm3 BUN (7-18) mg/dL Creatinine (0.55-1.02) mg/dL Est Cr Clr Drug Dosing mL/min Estimated GFR (MDRD) (>60) mL/min Uric Acid (2.6-6.0) mg/dL AST (15-37) U/L ALT (14-59) U/L Lactate Dehydrogenase (81-234) U/L Urine Color Yellow (Yellow) Urine Appearance Clear (Clear) Urine pH 7.5 (5.0-8.0) Ur Specific [place] 1.015 (1.005-1.030) Urine Protein Negative (Negative) Urine Glucose (UA) Negative (Negative) Urine Ketones Negative (Negative) Urine Occult Blood Negative (Negative) Urine Nitrite Negative (Negative) Urine Bilirubin Negative (Negative) Urine Urobilinogen 0.2 (0.2-1.0) Ur Leukocyte Esterase Negative (Negative) Urine RBC Not seen (0-5) /hpf Urine WBC 0-5 (0-5) /hpf Ur Epithelial Cells 5-10 H (0-5) /hpf Urine Bacteria Few (FEW) /hpf Urine Mucus Not seen (FEW) /hpf Urine Opiates Screen Negative (NEGATIVE) Ur Buprenorphine Scrn Negative (NEGATIVE) Ur Oxycodone Screen Negative (NEGATIVE) Urine Methadone Screen Negative (NEGATIVE) Ur Propoxyphene Screen Negative (NEGATIVE) Ur Barbiturates Screen Negative (NEGATIVE) Ur Tricyclics Screen Negative (NEGATIVE) Ur Phencyclidine Scrn Negative (NEGATIVE) Ur Amphetamine Screen Negative (NEGATIVE) U Methamphetamines Scrn Negative (NEGATIVE) U Benzodiazepines Scrn Negative (NEGATIVE) U Cocaine Metab Screen Negative (NEGATIVE) U Marijuana (THC) Screen Negative (NEGATIVE) RPR (NONREACTIVE) MRSA (PCR) Positive H Blood Type Gel Antibody Screen 01/11/18 01/11/18 01/11/18 Range/Units 12:20 12:20 12:20 WBC 9.45 (3.98-10.04) K/mm3 RBC 4.40 (3.98-5.22) M/mm3 Hgb 13.8 (11.2-15.7) gm/L Hct 40.3 (34.1-44.9) % MCV 91.6 (79.4-94.8) fl MCH 31.4 (25.6-32.2) pg MCHC 34.2 (32.2-35.5) g/dl RDW Std Deviation 43.8 (36.4-46.3) fL Plt Count 148 L (182-369) K/mm3 MPV 12.9 H (9.4-12.3) fl Neut % (Auto) 77.0 H (34.0-71.1) % Lymph % (Auto) 16.0 L (19.3-51.7) % [place] % (Auto) 6.3 (4.7-12.5) % Eos % (Auto) 0.4 L (0.7-5.8) Baso % (Auto) 0.1 (0.1-1.2) % Neut # (Auto) 7.27 H (1.56-6.13) K/mm3 Lymph # (Auto) 1.51 (1.18-3.74) K/mm3 [place] # (Auto) 0.60 H (0.24-0.36) K/mm3 Eos # (Auto) 0.04 (0.04-0.36) K/mm3 Baso # (Auto) 0.01 (0.01-0.08) K/mm3 BUN 6 L (7-18) mg/dL Creatinine 0.9 (0.55-1.02) mg/dL Est Cr Clr Drug Dosing 98.99 mL/min Estimated GFR (MDRD) > 60 (>60) mL/min Uric Acid 6.1 H (2.6-6.0) mg/dL AST 19 (15-37) U/L ALT 18 (14-59) U/L Lactate Dehydrogenase 185 (81-234) U/L Urine Color (Yellow) Urine Appearance (Clear) Urine pH (5.0-8.0) Ur Specific [place] (1.005-1.030) Urine Protein (Negative) Urine Glucose (UA) (Negative) Urine Ketones (Negative) Urine Occult Blood (Negative) Urine Nitrite (Negative) Urine Bilirubin (Negative) Urine Urobilinogen (0.2-1.0) Ur Leukocyte Esterase (Negative) Urine RBC (0-5) /hpf Urine WBC (0-5) /hpf Ur Epithelial Cells (0-5) /hpf Urine Bacteria (FEW) /hpf Urine Mucus (FEW) /hpf Urine Opiates Screen (NEGATIVE) Ur Buprenorphine Scrn (NEGATIVE) Ur Oxycodone Screen (NEGATIVE) Urine Methadone Screen (NEGATIVE) Ur Propoxyphene Screen (NEGATIVE) Ur Barbiturates Screen (NEGATIVE) Ur Tricyclics Screen (NEGATIVE) Ur Phencyclidine Scrn (NEGATIVE) Ur Amphetamine Screen (NEGATIVE) U Methamphetamines Scrn (NEGATIVE) U Benzodiazepines Scrn (NEGATIVE) U Cocaine Metab Screen (NEGATIVE) U Marijuana (THC) Screen (NEGATIVE) RPR (NONREACTIVE) MRSA (PCR) Blood Type O POSITIVE Gel Antibody Screen Negative 01/11/18 Range/Units 12:20 WBC (3.98-10.04) K/mm3 RBC (3.98-5.22) M/mm3 Hgb (11.2-15.7) gm/L Hct (34.1-44.9) % MCV (79.4-94.8) fl MCH (25.6-32.2) pg MCHC (32.2-35.5) g/dl RDW Std Deviation (36.4-46.3) fL Plt Count (182-369) K/mm3 MPV (9.4-12.3) fl Neut % (Auto) (34.0-71.1) % Lymph % (Auto) (19.3-51.7) % [place] % (Auto) (4.7-12.5) % Eos % (Auto) (0.7-5.8) Baso % (Auto) (0.1-1.2) % Neut # (Auto) (1.56-6.13) K/mm3 Lymph # (Auto) (1.18-3.74) K/mm3 [place] # (Auto) (0.24-0.36) K/mm3 Eos # (Auto) (0.04-0.36) K/mm3 Baso # (Auto) (0.01-0.08) K/mm3 BUN (7-18) mg/dL Creatinine (0.55-1.02) mg/dL Est Cr Clr Drug Dosing mL/min Estimated GFR (MDRD) (>60) mL/min Uric Acid (2.6-6.0) mg/dL AST (15-37) U/L ALT (14-59) U/L Lactate Dehydrogenase (81-234) U/L Urine Color (Yellow) Urine Appearance (Clear) Urine pH (5.0-8.0) Ur Specific [place] (1.005-1.030) Urine Protein (Negative) Urine Glucose (UA) (Negative) Urine Ketones (Negative) Urine Occult Blood (Negative) Urine Nitrite (Negative) Urine Bilirubin (Negative) Urine Urobilinogen (0.2-1.0) Ur Leukocyte Esterase (Negative) Urine RBC (0-5) /hpf Urine WBC (0-5) /hpf Ur Epithelial Cells (0-5) /hpf Urine Bacteria (FEW) /hpf Urine Mucus (FEW) /hpf Urine Opiates Screen (NEGATIVE) Ur Buprenorphine Scrn (NEGATIVE) Ur Oxycodone Screen (NEGATIVE) Urine Methadone Screen (NEGATIVE) Ur Propoxyphene Screen (NEGATIVE) Ur Barbiturates Screen (NEGATIVE) Ur Tricyclics Screen (NEGATIVE) Ur Phencyclidine Scrn (NEGATIVE) Ur Amphetamine Screen (NEGATIVE) U Methamphetamines Scrn (NEGATIVE) U Benzodiazepines Scrn (NEGATIVE) U Cocaine Metab Screen (NEGATIVE) U Marijuana (THC) Screen (NEGATIVE) RPR Non-reactive (NONREACTIVE) MRSA (PCR) Blood Type Gel Antibody Screen Med Orders - Current: Current Medications Calcium Gluconate (Calcium Gluconate) 1 gm IV ASDIRECTED PRN PRN Reason: respiratory distress Diphenhydramine HCl (Benadryl) 25 mg IVPUSH Q6H PRN PRN Reason: Pruritis Ephedrine Sulfate (Ephedrine Sulfate) 5 mg IVPUSH ASDIRECTED PRN PRN Reason: Hypotension Fentanyl (Sublimaze) 100 mcg EPIDUR Q3H PRN PRN Reason: Pain Last Admin: 01/12/18 09:13 Dose: 100 mcg Fentanyl/Bupivacaine HCl (Fentanyl/Bupivacaine/Ns 2 Mcg-0.125% 100 Ml) 100 ml EPIDUR ASDIRECTED BRISA Lactated Ringer's (Ringers, Lactated) 1,000 mls @ 40 mls/hr IV ASDIRECTED BRISA Last Admin: 01/12/18 08:17 Dose: 40 mls/hr Oxytocin/Lactated Ringer's (Pitocin In Lr 10 Units/1,000 Ml) 10 unit in 1,000 mls @ 12 mls/hr IV TITRATE BRISA; Protocol Last Titration: 01/12/18 07:33 Dose: 8 munits/min, 48 mls/hr Penicillin G Potassium 2.5 (millunits/ Sodium Chloride) 100 mls @ 100 mls/hr IV Q4H BRISA Last Admin: 01/12/18 06:43 Dose: 100 mls/hr Oxytocin/Lactated Ringer's (Pitocin In Lr 10 Units/1,000 Ml) 10 unit in 1,000 mls @ 500 mls/hr IV .CONTINUOUS [facility] Magnesium Sulfate (Magnesium Sulfate 40 Gm In Water 1000 Ml) 40 gm in 1,000 mls @ 50 mls/hr IV ASDIRECTED [facility] Nalbuphine HCl (Nubain) 10 mg IVPUSH Q2H PRN PRN Reason: pain Last Admin: 01/12/18 07:25 Dose: 10 mg Ondansetron HCl (Zofran) 4 mg IVPUSH Q4H PRN PRN Reason: Nausea/Vomiting Ondansetron HCl (Zofran) 4 mg IVPUSH ONETIME PRN PRN Reason: Nausea/Vomiting Sodium Chloride (Saline Flush) 10 ml FLUSH ASDIRECTED PRN PRN Reason: Keep Vein Open Discontinued Medications Acetaminophen (Tylenol) 650 mg PO NOW ONE Stop: 01/11/18 14:02 Last Admin: 01/11/18 14:17 Dose: 650 mg Penicillin G Potassium 5 (millunits/ Sodium Chloride) 100 mls @ 100 mls/hr IV ONETIME ONE Stop: 01/11/18 13:44 Last Admin: 01/12/18 01:45 Dose: 100 mls/hr Magnesium Sulfate 4 gm/ Premix 100 mls @ 300 mls/hr IV ONETIME ONE Stop: 01/12/18 08:22 Magnesium Sulfate 2 gm/ Premix 50 mls @ 300 mls/hr IV ONETIME ONE Stop: 01/12/18 08:12 Last Admin: 01/12/18 08:29 Dose: 300 mls/hr Labetalol HCl (Normodyne) 20 mg IVPUSH ONETIME ONE; Protocol Stop: 01/12/18 08:03 Last Admin: 01/12/18 08:14 Dose: 20 mg Misoprostol (Cytotec) 25 mcg VAG Q4H PRN PRN Reason: cervical ripening Last Admin: 01/11/18 21:30 Dose: 25 mcg Misoprostol (Cytotec) Confirm Administered Dose 25 mcg .ROUTE .STK-MED ONE Stop: 01/11/18 12:24 Last Admin: 01/11/18 12:34 Dose: Not Given Misoprostol (Cytotec) Confirm Administered Dose 600 mcg .ROUTE .STK-MED ONE Stop: 01/12/18 09:51 - Problem List & Annotations (1) 37 weeks gestation of SNOMED Code(s): 21702954 Code(s): Z3A.37 - 37 WEEKS GESTATION OF Status: Acute Current Visit: Yes (2) Preeclampsia SNOMED Code(s): 589306175 Code(s): O14.90 - UNSPECIFIED PRE-ECLAMPSIA, UNSPECIFIED TRIMESTER Status: Acute Current Visit: Yes Qualifiers: Trimester: third trimester Qualified Code(s): O14.93 - Unspecified pre- eclampsia, third trimester (3) GBS (group B Streptococcus carrier), +RV culture, currently SNOMED Code(s): 6679561470194, 401726365, 6522158373214 Code(s): O99.820 - STREPTOCOCCUS B CARRIER STATE COMPLICATING Status: Acute Current Visit: Yes (4) History of substance abuse SNOMED Code(s): 281252971 Code(s): Z87.898 - PERSONAL HISTORY OF OTHER SPECIFIED CONDITIONS Status: Acute Current Visit: Yes (5) Preeclampsia, severe SNOMED Code(s): 15964917 Code(s): O14.10 - SEVERE PRE-ECLAMPSIA, UNSPECIFIED TRIMESTER Status: Acute Current Visit: Yes Qualifiers: Trimester: third trimester Qualified Code(s): O14.13 - Severe pre-eclampsia , third trimester (6) Vaginal delivery SNOMED Code(s): 138432202 Code(s): O80 - ENCOUNTER FOR FULL-TERM UNCOMPLICATED DELIVERY Status: Acute Current Visit: Yes - Problem List Review Problem List Initiated/Reviewed/Updated: Yes - My Orders Last 24 Hours: My Active Orders 01/11/18 11:51 PIH Panel [OM.PC] Stat 01/11/18 12:00 DRUG SCREEN, URINE [URCHEM] Stat 01/11/18 12:17 Patient Status [ADT] Routine Communication Order [RC] ASDIRECTED Communication Order [RC] ASDIRECTED Communication Order [RC] ASDIRECTED Communication Order [RC] ASDIRECTED Monitoring [RC] INTERMITTENT Non Stress Test [RC] PER UNIT ROUTINE Notify Provider [RC] ASDIRECTED Notify Provider [RC] PRN Vaginal Exam [RC] ASDIRECTED Vital Signs [RC] PER UNIT ROUTINE CULTURE MRSA [RM] Routine Nalbuphine [Nubain] 10 mg IVPUSH Q2H PRN Ondansetron [Zofran] 4 mg IVPUSH Q4H PRN Sodium Chloride 0.9% [Saline Flush] 10 ml FLUSH ASDIRECTED PRN Electronic Heart Tones Internal [WOMSER] Per Unit Routine Peripheral IV Insertion Adult [OM.PC] Routine 01/11/18 12:18 Peripheral IV Care [RC] . DIRECTED 01/11/18 12:30 Lactated Ringers [Ringers, Lactated] 1,000 ml IV ASDIRECTED Oxytocin/Lactated Ringers [Pitocin in LR 10 Units/1,000 ML] 10 unit in 1,000 ml IV .CONTINUOUS Oxytocin/Lactated Ringers [Pitocin in LR 10 Units/1,000 ML] 10 unit in 1,000 ml IV TITRATE Medication Administration Instruction [OM.PC] ASDIRECTED 01/11/18 17:00 Penicillin G Potassium [Pfizerpen] 2.5 millunits Sodium Chloride 0.9% [Normal Saline] 100 ml IV Q4H 01/11/18 Dinner Regular Diet [DIET] 01/11/18 Lunch Regular Diet [DIET] 01/12/18 08:03 Bedrest [RC] ASDIRECTED Communication Order [RC] ASDIRECTED Notify Provider Status Change [RC] ASDIRECTED Notify Provider [RC] ASDIRECTED Oxygen Therapy [RC] PRN Calcium Gluconate 1 gm IV ASDIRECTED PRN 01/12/18 08:15 Magnesium Sulfate/Water [Magnesium Sulfate 40 GM in Water 1000 ML] 40 gm in 1, 000 ml IV ASDIRECTED Blood Pressure [OM.PC] ASDIRECTED Deep Tendon Reflexes [WOMSER] ASDIRECTED 01/12/18 10:09 miSOPROStol [Cytotec] 600 mcg PO NOW STA - Assessment Assessment:: 27 y/o G1 now P1001 PPD#0 from at 37 0/7 wks after IOL for preeclampsia with severe features - Plan Plan:: * Will continue magnesium for 24 hours * Routine cares * Encourage breast feeding * Anticipate
[2018-01-12] MEDS ORDERED: Ibuprofen 600 MG Tab PO PRN (11:41)
[2018-01-12] MEDS ORDERED: Acetaminophen 325 MG Tab PO PRN (11:41)
[2018-01-12] MEDS ORDERED: Benzocaine/Menthol 20%-0.5% Spray 56 GM Canister TOP PRN (11:41)
[2018-01-12] MEDS ORDERED: Lanolin 100% Cream 7 GM Tube TOP PRN (11:41)
[2018-01-12] MEDS ORDERED: Docusate Sodium 100 MG Cap PO PRN (11:41)
[2018-01-12] MEDS ORDERED: Witch Hazel Medicated Pads 100/Jar TOP PRN (11:41)
--- NOTE | 2018-01-12 12:46 | PCM.SN ---
- Free Text/Narrative Note: Around 0800 patient with increasing contraction pain and 3 severe BP's in a row. Given 20 mg of IV labetalol and magnesium started. Anesthesia to come place epidural. Continue to monitor closely Christiana Gonzales MD
[2018-01-12] MEDS: Magnesium Sulfate/Water 4 GM in Premix Bag 1 BAG IV ONE ×2 (20:49→20:51)
--- NOTE | 2018-01-13 07:57 | PCM.DCSUM1 ---
Discharge Summary - Hospital Course Free Text/Narrative:: Gloria is a 27-year-old 1 para 1001White female who was admitted for elective induction of labor because of elevated blood pressure. Patient was thought to be preeclamptic with occasional but inconsistent severe symptoms of blood pressure elevation. Just with artificial rupture membranes and oxytocin. Recommend device using balloon catheter and misoprostol. Patient underwent spontaneous vaginal delivery of a moy viable male . Apgars were 8 and 8. He delivery note for details. patient's blood pressure intermittently was elevated or borderline elevated. She was started on magnesium sulfate maintained on magnesium sulfate for 24 hours. His are +2-3 bilaterally in lower extremities. No clonus is noted. Her blood pressures have normalized. She has not been on any antihypertensives. She is feeling fine and wishes to be discharged as her baby was transferred to [facility] in [place] because of some respiratory/ cardiac concerns. Evaluation today. Her blood pressures normal. Magnesium sulfate was stopped approximately 4 hours ago. Last magnesium level was 6.1 earlier this a.m. It was weaned over 2 hours. Her uterus is at the umbilicus -2 and is firm. It is nontender. She shows minimal edema. Patient is planning to breast-feed. She has a pump and wishes to proceed with this while baby is in NICU. She is ready for discharge. - Discharge Data Discharge Date: 01/13/18 Discharge Disposition: Home, Self-Care 01 Condition: Good - Patient Instructions Diet: Regular Diet as Tolerated (Nursing diet was increased calcium and calories as directed.) Activity: As Tolerated (No intercourse or tampons until bleeding resolves) Driving: Do Not Drive Showering/Bathing: May Shower (may take a bath) Notify Provider of: Fever, Increased Pain, Swelling and Redness, Nausea and/or Vomiting Other/Special Instructions: Patient is given preeclampsia symptoms and asked to call if any of these occur. Medical attention immediately if these happen. She is exhibiting no symptoms or signs at this time. - Discharge Plan *PRESCRIPTION DRUG MONITORING PROGRAM REVIEWED*: No *COPY OF PRESCRIPTION DRUG MONITORING REPORT IN PATIENT AMADA: No Home Medications: Home Meds Hydrocodone/Acetaminophen [Lortab 5-325 mg Tablet] 1 - 2 each PO Q6HR PRN #20 tablet 02/19/16 [Rx] Sulfamethoxazole/Trimethoprim [Bactrim Ds Tablet] 1 each PO Q12HR #20 tablet 11/27 [Rx] Acetaminophen [Tylenol] 650 mg PO Q4H PRN tablet 01/13/18 [Rx] Ibuprofen [Motrin] 600 mg PO Q6H PRN tablet 01/13/18 [Rx] Patient Handouts: Steps to Quit Smoking Referrals: Christiana Gonzales MD [Primary Care Provider] - (Patient is to return to clinic to see Dr. Gonzales this week in follow-up of her hypertension/preeclampsia.) - Discharge Summary/Plan Comment DC Time >30 min.: No Discharge Summary/Plan Comment: Discharge instructions: 1. Discharge home 2. Diet, activity and follow-up discussed with patient. Recommend nursing diet with increased calories and calcium. 3. Precautions given concern increased pain, bleeding, temperature, signs/ symptoms of DVT/PE. Also signs/symptoms of preeclampsia. Patient is asked to seek medical attention immediately if any of these occur. 4. Medications per home medication was printed, discussed with and given to the patient. 5. Return to clinic-Dr. Gonzales-within the next 5 days for follow-up of her hypertension/preeclampsia. Diagnosis: 1. Hypertension/preeclampsia with inconsistent severe features or 19 induction of labor 2. Term -delivered Condition: Good - Patient Data Vitals - Most Recent: Last Vital Signs Temp 36.6 C 01/12/18 23:37 Pulse 69 01/12/18 23:37 Resp 16 01/12/18 23:37 BP 135/84 01/12/18 23:37 Pulse Ox 97 01/12/18 23:37 Weight - Most Recent: 86.183 kg I&O - Last 24 hours: Intake & Output 01/12/18 01/13/18 01/13/18 22:59 06:59 14:59 Intake Total 300 Output Total 700 800 Balance -700 -500 Lab Results - Last 24 hrs: Laboratory Results - last 24 hr 01/12/18 01/13/18 Range/Units 20:13 02:11 Magnesium 5.6 H 6.1 H (1.8-2.4) mg/dl Med Orders - Current: Current Medications Acetaminophen (Tylenol) 650 mg PO Q4H PRN PRN Reason: mild pain or fever Benzocaine/Menthol (Dermoplast Pain Relief [place]) 0 gm TOP ASDIRECTED PRN PRN Reason: Perineal Comfort Measure Docusate Sodium (Colace) 100 mg PO BID PRN PRN Reason: Constipation Emollient Ointment (Lansinoh Hpa) 0 gm TOP ASDIRECTED PRN PRN Reason: Sore Nipples Lactated Ringer's (Ringers, Lactated) 1,000 mls @ 40 mls/hr IV ASDIRECTED [facility] Last Admin: 01/12/18 08:17 Dose: 40 mls/hr Magnesium Sulfate (Magnesium Sulfate 40 Gm In Water 1000 Ml) 40 gm in 1,000 mls @ 50 mls/hr IV ASDIRECTED [facility] Last Admin: 01/12/18 20:54 Dose: 50 mls/hr Ibuprofen (Motrin) 600 mg PO Q6H PRN PRN Reason: Mild pain or fever Witch Charissa (Tucks) 1 pad TOP ASDIRECTED PRN PRN Reason: Hemorrhoid pain Discontinued Medications Acetaminophen (Tylenol) 650 mg PO NOW ONE Stop: 01/11/18 14:02 Last Admin: 01/11/18 14:17 Dose: 650 mg Calcium Gluconate (Calcium Gluconate) 1 gm IV ASDIRECTED PRN PRN Reason: respiratory distress Diphenhydramine HCl (Benadryl) 25 mg IVPUSH Q6H PRN PRN Reason: Pruritis Ephedrine Sulfate (Ephedrine Sulfate) 5 mg IVPUSH ASDIRECTED PRN PRN Reason: Hypotension Fentanyl (Sublimaze) 100 mcg EPIDUR Q3H PRN PRN Reason: Pain Last Admin: 01/12/18 09:13 Dose: 100 mcg Fentanyl/Bupivacaine HCl (Fentanyl/Bupivacaine/Ns 2 Mcg-0.125% 100 Ml) 100 ml EPIDUR ASDIRECTED [facility] Oxytocin/Lactated Ringer's (Pitocin In Lr 10 Units/1,000 Ml) 10 unit in 1,000 mls @ 12 mls/hr IV TITRATE [facility]; Protocol Last Titration: 01/12/18 07:33 Dose: 8 munits/min, 48 mls/hr Penicillin G Potassium 5 (millunits/ Sodium Chloride) 100 mls @ 100 mls/hr IV ONETIME ONE Stop: 01/11/18 13:44 Last Admin: 01/12/18 01:45 Dose: 100 mls/hr Penicillin G Potassium 2.5 (millunits/ Sodium Chloride) 100 mls @ 100 mls/hr IV Q4H BRISA Last Admin: 01/12/18 06:43 Dose: 100 mls/hr Oxytocin/Lactated Ringer's (Pitocin In Lr 10 Units/1,000 Ml) 10 unit in 1,000 mls @ 500 mls/hr IV .CONTINUOUS BRISA Magnesium Sulfate 4 gm/ Premix 100 mls @ 300 mls/hr IV ONETIME ONE Stop: 01/12/18 08:22 Last Admin: 01/12/18 20:51 Dose: 300 mls/hr Magnesium Sulfate 2 gm/ Premix 50 mls @ 300 mls/hr IV ONETIME ONE Stop: 01/12/18 08:12 Last Admin: 01/12/18 08:29 Dose: 300 mls/hr Labetalol HCl (Normodyne) 20 mg IVPUSH ONETIME ONE; Protocol Stop: 01/12/18 08:03 Last Admin: 01/12/18 08:14 Dose: 20 mg Misoprostol (Cytotec) 25 mcg VAG Q4H PRN PRN Reason: cervical ripening Last Admin: 01/11/18 21:30 Dose: 25 mcg Misoprostol (Cytotec) Confirm Administered Dose 25 mcg .ROUTE .STK-MED ONE Stop: 01/11/18 12:24 Last Admin: 01/11/18 12:34 Dose: Not Given Misoprostol (Cytotec) Confirm Administered Dose 600 mcg .ROUTE .STK-MED ONE Stop: 01/12/18 09:51 Last Admin: 01/12/18 20:53 Dose: Not Given Misoprostol (Cytotec) 600 mcg PO NOW STA Stop: 01/12/18 10:10 Last Admin: 01/12/18 09:50 Dose: 600 mcg Nalbuphine HCl (Nubain) 10 mg IVPUSH Q2H PRN PRN Reason: pain Last Admin: 01/12/18 07:25 Dose: 10 mg Ondansetron HCl (Zofran) 4 mg IVPUSH Q4H PRN PRN Reason: Nausea/Vomiting Ondansetron HCl (Zofran) 4 mg IVPUSH ONETIME PRN PRN Reason: Nausea/Vomiting Sodium Chloride (Saline Flush) 10 ml FLUSH ASDIRECTED PRN PRN Reason: Keep Vein Open
[2018-01-13 10:46] VITALS: BP 135/94
--- NOTE | 2018-01-13 19:57 | PCM48HPAN ---
Post Anesthesia Note - EVALUATION WITHIN 48HRS OF ANESTHETIC Vital Signs in Normal Range: Yes Patient Participated in Evaluation: Yes Respiratory Function Stable: Yes Airway Patent: Yes Cardiovascular Function Stable: Yes Hydration Status Stable: Yes Pain Control Satisfactory: Yes Nausea and Vomiting Control Satisfactory: Yes Mental Status Recovered: Yes - COMMENTS/OBSERVATIONS Free Text/Narrative:: Patient denied any anesthetic complications
== END 2018-01-13 10:45 | disposition home or self-care (01) | DRG 775 ==
LOC: JD.OBCHECK 11:32 → JD.OB 12:17 → OBSVTOIN 01-12 09:54 → JD.MS 01-12 09:55 → JD.OB 01-12 11:16
PROVIDERS: ADMIT Obstetrics & Gynecology; ATTEND Obstetrics & Gynecology
PROC: 3E033VJ Introduction of Other Hormone into Peripheral Vein, Percutaneous Approach (ICD-10-PCS; principal; 2018-01-12)
PROC: 0UQMXZZ Repair Vulva, External Approach (ICD-10-PCS; principal; 2018-01-12)
PROC: 0KQM0ZZ Repair Perineum Muscle, Open Approach (ICD-10-PCS; principal; 2018-01-12)
PROC: 10907ZC Drainage of Amniotic Fluid, Therapeutic from Products of Conception, Via Natural or Artificial Opening (ICD-10-PCS; principal; 2018-01-12)
PROC: 0U7C7ZZ Dilation of Cervix, Via Natural or Artificial Opening (ICD-10-PCS; principal; 2018-01-12)
PROC: 6A550ZT Pheresis of Cord Blood Stem Cells, Single (ICD-10-PCS; principal; 2018-01-12)
PROC: 10E0XZZ Delivery of Products of Conception, External Approach (ICD-10-PCS; principal; 2018-01-12)
PROC: 3E0P7VZ Introduction of Hormone into Female Reproductive, Via Natural or Artificial Opening (ICD-10-PCS; principal; 2018-01-12)
PROC: 00HU33Z Insertion of Infusion Device into Spinal Canal, Percutaneous Approach (ICD-10-PCS; 2018-01-12)
PROC: 3E0R3BZ Introduction of Anesthetic Agent into Spinal Canal, Percutaneous Approach (ICD-10-PCS; 2018-01-12)
DX: O14.14 Severe pre-eclampsia complicating childbirth (principal); O99.344 Other mental disorders complicating childbirth; Z37.0 Single live birth; F41.9 Anxiety disorder, unspecified; Z3A.36 36 weeks gestation of pregnancy; Z87.891 Personal history of nicotine dependence; F32.9 Major depressive disorder, single episode, unspecified; O99.824 Streptococcus B carrier state complicating childbirth; O70.1 Second degree perineal laceration during delivery; O13.4 Gestational [pregnancy-induced] hypertension without significant proteinuria, complicating childbirth
CPT/HCPCS: 36415; 51701; 59025; 59409; 80306; 81001; 82565; 83615; 83735; 84450; 84460; 84520; 84550; 85025; 86592; 86850; 86900; 86901; 87070; 87081; 87641; A9270-GY; J2300; J2540; J2590; J3010; J3475; J3490; J7030; J7120

== ENCOUNTER 2020-10-14 12:09 | Emergency (ER) | payer MEDICAID ==
[2020-10-14 12:26] VITALS: BP 133/80; PULSE 67
--- NOTE | 2020-10-14 12:44 | EDM.PDOC ---
ED HPI GENERAL MEDICAL PROBLEM - General Chief Complaint: Skin Complaint Stated Complaint: GENITAL COMPLAINT Time Seen by Provider: 10/14/20 12:14 Source of Information: Reports: Patient, RN Notes Reviewed History Limitations: Reports: No Limitations - History of Present Illness INITIAL COMMENTS - FREE TEXT/NARRATIVE: Patient is a 30-year-old female who presents to the ER for a genital skin complaint. 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 She has had multiple boils/lesions in various places for the last 2 weeks or so, she states that she has one now that is on her right vaginal lip, that did drain a few days ago, when she put a hot compress to it, she states it is c d still operator, and does drain from time to time. It is roughly the size of a marble, but not fluctuant. T here is a small pinpoint lesion on her left mid back, that has more of an appearance of a pimple. And she states she has had lesions on her lower groin, upper legs. States that the one on her vagina is very tender, makes it uncomfortable to sit. She is not having any fevers or chills, cough or shortness of breath, nausea/vomiting/diarrhea. Primary care provider is Dr. Sandoval, and she notes that she called her clinic today however she was out on vacation so she was unable to get an appointment. vagina Pain Score (Numeric/FACES): 5 - Related Data Allergies Allergy/AdvReac Type Severity Reaction Status Date / Time No Known Allergies Allergy Verified 10/14/20 12:26 Home Meds: Home Meds Hydrocodone/Acetaminophen [Lortab 5-325 mg Tablet] 1 - 2 each PO Q6HR PRN #20 tablet 02/19/16 [Rx] Sulfamethoxazole/Trimethoprim [Bactrim Ds Tablet] 1 each PO Q12HR #20 tablet 02/19/16 [Rx] Acetaminophen [Tylenol] 650 mg PO Q4H PRN tablet 01/13/18 [Rx] Doxycycline [Vibramycin] 100 mg PO BID 10 Days #20 tab 10/14/20 [Rx] Ibuprofen [Motrin] 600 mg PO Q6H PRN #20 tablet 10/14/20 [Rx] Past Medical History Genitourinary History: Reports: STD Other Genitourinary History: history chlamydia 2015 [employer] History: Reports: Other [employer] History: Cycles somewhat irregular with history of eating disorder. history of PID and chlamydia infection. Nexplanon implant left upper arm Psychiatric History: Reports: Anxiety, Depression, Eating Disorders - Infectious Disease History Infectious Disease History: Reports: MRSA - Past Surgical History HEENT Surgical History: Reports: Oral Surgery Female Surgical History: Reports: Other (See Below) Musculoskeletal Surgical History: Reports: Other (See Below) Other Musculoskeletal Surgeries/Procedures:: bunionectomy Social & Family History - Family History Family Medical History: No Pertinent Family History - Tobacco Use Tobacco Use Status *Q: Never Tobacco User - Caffeine Use Caffeine Use: Reports: None - Recreational Drug Use Recreational Drug Use: No ED ROS GENERAL - Review of Systems Review Of Systems: Comprehensive ROS is negative, except as noted in HPI. ED EXAM, SKIN/RASH Exam: See Below Exam Limited By: No Limitations General Appearance: Alert, WD/WN, No Apparent Distress Respiratory/Chest: No Respiratory Distress, Lungs Clear, Normal Breath Sounds, No Accessory Muscle Use, Chest Non-Tender Cardiovascular: Normal Peripheral Pulses, Regular Rate, Rhythm, No Edema Peripheral Pulses: 2+: Radial (L), Radial (R) (Female) Exam: Vaginal Lesions (marble sized lesion to R vulva, tender, but not fluctuant) Back Exam: Other (pustule to Left mid back region, roughly 1-2mm ) Extremities: Normal Inspection, Normal Capillary Refill Neurological: Alert, Oriented, Normal Cognition, No Motor/Sensory Deficits Psychiatric: Normal Affect, Normal Mood Skin: Warm, Dry, Intact, Normal Color, No Rash Location, Skin: Back, Genital Characteristics: Macular, Erythematous Associated features: Inflammation Course - Vital Signs Last Recorded V/S: Last Vital Signs Temp 98.4 F 10/14/20 12:19 Pulse 67 10/14/20 12:19 Resp 18 10/14/20 12:19 BP 133/80 10/14/20 12:19 Pulse Ox 98 10/14/20 12:19 - Re-Assessments/Exams Free Text/Narrative Re-Assessment/Exam: 10/14/20 12:45 Patient presents to the ER for her multiple skin lesions, we will go ahead and place her on a course of doxycycline and have her follow-up with her regular care provider after the medication has been taken, and hopefully the lesions resolve themselves. Departure - Departure Time of Disposition: 12:45 Disposition: Home, Self-Care 01 Condition: Good Clinical Impression: Vulvar abscess, Pustule, History of MRSA infection - Discharge Information *PRESCRIPTION DRUG MONITORING PROGRAM REVIEWED*: No *COPY OF PRESCRIPTION DRUG MONITORING REPORT IN PATIENT AMADA: No Prescriptions: Ibuprofen [Motrin] 600 mg PO Q6H PRN #20 tablet PRN Reason: Pain Doxycycline [Vibramycin] 100 mg PO BID 10 Days #20 tab Instructions: Cellulitis, Adult, [id number] Referrals: Mag Juan MD [Primary Care Provider] - Forms: ED Department Discharge Additional Instructions: You were evaluated in the ER today regarding a suspected skin infection. It does appear that you have a cellulitis and/ or abscess. You were given an antibiotic, doxycycline please take as prescribed until the course is done or told otherwise by different provider. Please note that this antibiotic will take at least 48 hours to start working appropriately. This medication was electronically sent to the [place] [facility] located in the [employer] store. You may try to use heat/ice packs to the area to help reduce pain/swelling. You may take 500 mg Tylenol or 600 mg ibuprofen every 6 hours as needed for further pain relief. Do not exceed 4000 mg Tylenol or 3200 mg ibuprofen in a 24-hour time span. You were also given a prescription for 600mg tablets of Ibuprofen for pain relief. Follow-up with your regular care provider, when she gets back from her vacation, to see if there is a long-term solution for these pustules/abscesses. Please return to the ER at any time if your symptoms change or worsen. Sepsis Event Note (ED) - Evaluation Sepsis Screening Result: No Definite Risk - Focused Exam Vital Signs: Vital Signs Temp Pulse Resp BP Pulse Ox 10/14/20 12:19 98.4 F 67 18 133/80 98
== END 2020-10-14 13:04 | disposition home or self-care (01) ==
LOC: JD.ED 12:09
DX: N76.4 Abscess of vulva (principal); Z86.14 Personal history of Methicillin resistant Staphylococcus aureus infection
CPT/HCPCS: 99282; 99283